=== PATIENT | female | born 1995 | race Caucasian/White ===

== ENCOUNTER 2017-11-15 04:49 | Inpatient (IN) | payer MEDICAID ==
[2017-11-15] MEDS ORDERED: BUTORPHANOL 2 MG INJ IV (06:00)
[2017-11-15] MEDS ORDERED: METHYLERGONOVINE 0.2 MG INJ IM ×2 (06:00→20:30)
[2017-11-15] MEDS ORDERED: CEFAZOLIN 2 GM/50 ML (PMX) 50 ML IV (06:00)
[2017-11-15] MEDS ORDERED: MISOPROSTOL 200 MCG TAB PR ×2 (06:00→20:30)
[2017-11-15] MEDS ORDERED: CARBOPROST 250 MCG INJ IM ×2 (06:00→20:30)
[2017-11-15] MEDS ORDERED: BUTORPHANOL 1 MG INJ IV (06:00)
[2017-11-15 06:29] LABS: ADD MAN DIFF? NO
[2017-11-15 06:35] LABS: BASOPHILS % 0.3 % (0.0-2.0); EOSINOPHILS % 0.4 % (0.0-7.0); HEMATOCRIT 31.2 % (37.0-47.0); HEMOGLOBIN 9.6 g/dl (12.0-16.0); LYMPHOCYTES # 1.2 10^3/ul (0.8-2.9); LYMPHOCYTES % 16.1 % (15.0-51.0); MEAN CORPUSCULAR HEMOGLOBIN 24.2 pg (29.0-33.0); MEAN CORPUSCULAR HGB CONC 30.8 g/dl (32.0-37.0); MEAN CORPUSCULAR VOLUME 78.8 fl (82.0-101.0); MEAN PLATELET VOLUME 11.5 fl (7.4-10.4); MONOCYTE # 0.4 10^3/ul (0.3-0.9); MONOCYTES % 5.3 % (0.0-11.0); NEUTROPHIL # 5.9 10^3/ul (1.6-7.5); NEUTROPHILS % 77.1 % (39.0-77.0); PLATELET COUNT 219 10^3/UL (140-415); RED BLOOD COUNT 3.96 10^6/ul (4.20-5.40); RED CELL DISTRIBUTION WIDTH 15.9 % (11.5-14.5)
[2017-11-15 06:35] LABS: WHITE BLOOD COUNT 7.7 10^3/ul (4.8-10.8)
[2017-11-15 06:55] LABS: ALANINE AMINOTRANSFERASE 20 IU/L (13-69); ALBUMIN 3.3 g/dl (3.3-4.9); ALBUMIN/GLOBULIN RATIO 1.03; ALKALINE PHOSPHATASE 226 IU/L (42-121); ANION GAP 11 (8-16); ASPARTATE AMINO TRANSFERASE 22 IU/L (15-46); BILIRUBIN,INDIRECT 0.6 mg/dl (0-1.1); BILIRUBIN,TOTAL 0.6 mg/dl (0.2-1.3); BLOOD UREA NITROGEN 12 mg/dl (7-20); CALCIUM 8.5 mg/dl (8.4-10.2); CARBON DIOXIDE 22 mmol/L (21-31); CHLORIDE 107 mmol/L (97-110); CREATININE 0.62 mg/dl (0.44-1.00); GLUCOSE 91 mg/dl (70-220); POTASSIUM 4.1 mmol/L (3.5-5.1); SODIUM 136 mmol/L (135-144); TOTAL PROTEIN 6.5 g/dl (6.1-8.1)
[2017-11-15 07:00] LABS: INR 0.93; PROTIME 12.6 Sec (11.9-14.9)
[2017-11-15 07:01] LABS: PARTIAL THROMBOPLASTIN TIME 26.2 Sec (25.0-35.0)
[2017-11-15 07:24] LABS: HEPATITIS B SURFACE ANTIGEN NEGATIVE (NEGATIVE)
[2017-11-15 07:34] LABS: HIV 1&2 ANTIBODY NEGATIVE (NEGATIVE)
[2017-11-15] MEDS ORDERED: FENTAnyl 2MCG/ML-ROPIV 0.2% 100 ML (08:27)
[2017-11-15] MEDS: LACTATED RINGER'S 1,000 ML IV ×2 (09:05→10:25)
[2017-11-15] MEDS: AMPICILLIN 2 GM/NS (PMX) 100 ML IVPB (09:20)
[2017-11-15 10:00] LABS: AMPHETAMINE/METHAMPHETAMINE Negative (NEGATIVE); BARBITURATES Negative (NEGATIVE); BENZODIAZEPINES Negative (NEGATIVE); CANNABINOIDS Negative (NEGATIVE); COCAINE Negative (NEGATIVE); OPIATES Negative (NEGATIVE)
[2017-11-15] MEDS ORDERED: NALOXONE (0.4 MG/ML) INJ IV (11:30)
[2017-11-15] MEDS ORDERED: ONDANSETRON 4 MG INJ IV (11:30)
[2017-11-15] MEDS: AMPICILLIN 1 GM/NS (PMX) 50 ML IVPB ×2 (13:14→17:42)
[2017-11-15 15:49] LABS: RAPID PLASMA REAGIN NONREACTIVE (NR)
[2017-11-15] MEDS: FENTAnyl 2MCG/ML-ROPIV 0.2% 100 ML BAG EPI (17:15)
[2017-11-15] MEDS: OXYTOCIN 30 UNITS/LR 500 ML IV ×3 (18:26→23:38)
[2017-11-15] MEDS: IBUPROFEN 800 MG TAB PO ×2 (19:37→23:23)
[2017-11-15] MEDS: LACTATED RINGER'S 1,000 ML IV* (20:06)
[2017-11-15] MEDS: HYDROCODONE/APAP (5/325) TAB PO (20:20)
[2017-11-15] MEDS ORDERED: ZOLPIDEM 5 MG TAB PO (20:30)
[2017-11-15] MEDS ORDERED: LANOLIN 7 GM TUBE TOP (20:30)
[2017-11-15] MEDS ORDERED: MAGNESIUM HYDROXIDE 30ML CUP PO (20:30)
[2017-11-15] MEDS ORDERED: SENNA/DOCUSATE NA (8.6MG/50MG) TAB PO (20:30)
[2017-11-15] MEDS ORDERED: DIPHENHYDRAMINE 25 MG CAP PO (20:30)
[2017-11-15] MEDS ORDERED: ACETAMINOPHEN 325 MG TAB PO (20:30)
[2017-11-15] MEDS ORDERED: OXYTOCIN 30 UNITS/LR 500 ML IV (20:30)
[2017-11-15] MEDS: WITCH HAZEL/GLYCERIN PAD PR (20:40)
[2017-11-15] MEDS: BENZOCAINE 20% 56 ML SPRAY TOP (20:40)
[2017-11-16] MEDS: LACTATED RINGER'S 1,000 ML IV* ×3 (04:06→20:06)
[2017-11-16] MEDS: IBUPROFEN 800 MG TAB PO ×3 (05:58→17:14)
[2017-11-16 06:54] LABS: ADD MAN DIFF? NO
[2017-11-16 07:03] LABS: WHITE BLOOD COUNT 10.9 10^3/ul (4.8-10.8)
[2017-11-16 07:03] LABS: BASOPHILS % 0.2 % (0.0-2.0); EOSINOPHILS # 0.1 10^3/ul (0.0-0.5); EOSINOPHILS % 0.5 % (0.0-7.0); HEMATOCRIT 26.8 % (37.0-47.0); HEMOGLOBIN 8.2 g/dl (12.0-16.0); LYMPHOCYTES # 1.8 10^3/ul (0.8-2.9); LYMPHOCYTES % 16.3 % (15.0-51.0); MEAN CORPUSCULAR HEMOGLOBIN 24.5 pg (29.0-33.0); MEAN CORPUSCULAR HGB CONC 30.6 g/dl (32.0-37.0); MEAN PLATELET VOLUME 11.5 fl (7.4-10.4); MONOCYTE # 0.7 10^3/ul (0.3-0.9); MONOCYTES % 6.5 % (0.0-11.0); NEUTROPHIL # 8.3 10^3/ul (1.6-7.5); PLATELET COUNT 176 10^3/UL (140-415); RED BLOOD COUNT 3.35 10^6/ul (4.20-5.40); RED CELL DISTRIBUTION WIDTH 16.3 % (11.5-14.5)
[2017-11-17] MEDS: LACTATED RINGER'S 1,000 ML IV* (04:06)
[2017-11-17] MEDS: IBUPROFEN 800 MG TAB PO ×2 (06:07)
[2017-11-17] MEDS: VARICELLA VACCINE LIVE/PF 1,350 UNIT/0.5 ML ML SC* (09:29)
[2017-11-17] MEDS: DIPHTH/TET/ACEL PERTUSS (ADULT) 0.5 ML VIAL IM* (09:29)
[2017-11-17] MEDS: MEASLES,MUMPS,RUBELLA VACCINE INJ SC* (09:29)
[2017-11-18 12:11] LABS: RUBELLA ANTIBODY - IGG 1.73 index
[2017-11-18 13:02] LABS: RUBELLA ANTIBODY - IGM <20.00 AU/mL
== END 2017-11-17 12:30 | disposition home or self-care (01) | DRG 775 ==
LOC: OBT 04:49 → L-D 04:51 → OBT 05:17 → L-D 05:18 → PP1 20:33
PROC: 10E0XZZ Delivery of Products of Conception, External Approach (ICD-10-PCS; principal; 2017-11-15)
DX: O80 Encounter for full-term uncomplicated delivery (principal); Z3A.39 39 weeks gestation of pregnancy; Z37.0 Single live birth
CPT/HCPCS: 36415; 62319; 80053; 80307; 85025; 85610; 85730; 86592; 86703; 86762; 86850; 86900; 86901; 87340